=== PATIENT | female | born 1945 | race Caucasian/White ===

== ENCOUNTER → 2018-10-02 | Outpatient (CLI) | payer MEDICARE, OTHER ==
[~2018-10-02] MED LIST: ADVIL100 MG PO; ASPI81EC PO; ATOR40TA PO; Anastrozole1 GM; CARV6.25 PO; CHOL10002; CITRACAL PO; CYAN500 PO; DULO60; FISH OIL 1,0001 EAC1 PO; FISH1000 PO; GABA300 PO; GABAPENTIN300 MG/6 M TOP; GLIP5 PO; GLUCO PO; GLUCOSAMIN-CHO1 EACH PO; LIRA0.6P; LOSARTAN PO; METF500 PO; MULVITMIND PO; PRIM50; SITA100T2; VITAMIN C PO; [UNRECOGNIZED DRUG - OTHER] PO
== END ==
LOC: LAB SHORT 08:30 → LAB EV 08:30
DX: N39.0 Urinary tract infection, site not specified (principal)
CPT/HCPCS: 87077; 87086; 87186

== ENCOUNTER → 2019-10-08 | Outpatient (CLI) | payer MEDICARE, OTHER ==
[~2019-10-08] MED LIST changes: +ASPI81CH PO; -ASPI81EC PO; +CALCITRATE200 MG PO; -FISH1000 PO; +Fish Oil PO; +Gabapentin600 MG PO; +IBUP200 PO; +LETR2.5 PO; +MELATONIN5 M1 PO
== END | disposition home or self-care (01) ==
LOC: LAB 12:15 → LAB SHORT 12:15
DX: E11.65 Type 2 diabetes mellitus with hyperglycemia (principal)
CPT/HCPCS: 36415; 83036

== ENCOUNTER 2019-10-16 10:23 | Day surgery (SDC) | payer MEDICARE, OTHER ==
[~2019-10-16] VITALS: Ht 160 cm; Wt 69.6 kg
--- NOTE | 2019-10-16 12:01 | NUR ---
Ambulatory in Day Surgery History, Chart, Medications and Allergies reviewed before start of procedure.Lungs clear T/O to Auscultation. Patient confirms NPO status and agrees with scheduled surgery.PT'S NECKLACE PLACED IN BAG AND GIVEN TO PT'S .
--- NOTE | 2019-10-16 13:13 | NUR ---
IV INFILTRATED, REMOVED IN OR
--- NOTE | 2019-10-16 17:50 | NUR ---
SHIFT SUMMARY POD 0 S/P R TKA. A/OX4. LANA WRAP C/D/I WITH POLAR, TEDS, AND SCD IN PLACE. IVF RUNNING PER ORDERS. DENIES PAIN, SOB, CP, OR DYSPNEA. ABLE TO WIGGLE FINGERS AND TOES, NOW HAS FULL SENSATION TO BLE. MEDICATED ONCE FOR NAUSEA, TOLERATING CRACKERS AND CL. AWAITING POST-OP VOID, BLADDER SCAN VOL OF 330. SPOUSE AT BEDSIDE. PT CURRENTLY RESTING IN BED WITH CALL LIGHT IN REACH WATCHING TV WITH SPOUSE. WILL CONT TO MONITOR AND GIVE REPORT TO ONCOMING RN.
--- NOTE | 2019-10-17 04:44 | NUR ---
SHIFT SUMMARY POD 1 R TKA. AAOX4, VSS. POLAR LIZET IN PLACE. SENSATION PRESENT, PULSES PALPABLE. LANA WRAP CDI. PAIN REPORTED AT BEGINNING OF SHIFT, MEDICATED WITH OXYCODONE FOR BREATKTHROUGH, MEDICATED WITH SCHEDULED OTHERWISE. PT UP TO RESTROOM X 2 DURING SHIFT WITH FWW AND GB. PT IS UNSTEADY WHEN FIRST STANDING UP. FOLLOWED PRECAUTIONS WELL. REPORTED ONE BM, ONE EMESIS DURING SHIFT, DENIED NAUSEA AFTER VOMITING.
[2019-10-17 05:49] LABS: BASOPHILS ABSOLUTE AUTO 0.02 K/mm3 (0.00-0.23); BASOPHILS PERCENT AUTO 0 % (0-2); EOSINOPHILS PERCENT AUTO 0 % (0-6); Hematocrit 31.1 % (33.0-51.0); Hemoglobin 9.9 g/dL (11.5-16.0); IMMATURE GRAN ABSOLUTE AUTO 0.07 K/mm3 (0.00-0.10); IMMATURE GRAN PERCENT AUTO 1 % (0-1); LYMPHOCYTES PERCENT AUTO 7 % (21-46); MONOCYTES ABSOLUTE AUTO 0.93 K/mm3 (0.16-1.47); MONOCYTES PERCENT AUTO 8 % (4-13); Mean Corpuscular HGB 31.1 pg (26.0-34.0); Mean Corpuscular HGB Conc 31.8 g/dL (31.5-36.5); Mean Corpuscular Volume 98 fL (80-100); Mean Platelet Volume 10.9 fL (9.1-12.4); NEUTROPHILS ABSOLUTE AUTO 10.38 K/mm3 (1.96-9.15); NEUTROPHILS PERCENT AUTO 84 % (41-73); Platelet Count 232 K/mm3 (150-400); RDW Coefficient Variation 12.7 % (11.7-14.2); RDW Standard Deviation 45.6 fL (35.1-46.3); Red Blood Cell Count 3.18 M/mm3 (3.80-5.20)
[2019-10-17 06:15] LABS: Magnesium, Blood 1.4 mg/dL (1.6-2.4)
[2019-10-17 06:17] LABS: Anion Gap 8 mmol/L (6-16); Blood Urea Nitrogen 23 mg/dL (8-24); Bun/Creatinine Ratio 27.4 (12.0-20.0); CO2, Blood 25 mmol/L (21-32); Calcium, Blood 8.7 mg/dL (8.5-10.1); Chloride, Blood 107 mmol/L (98-108); Creatinine, Blood 0.84 mg/dL (0.40-1.00); Glomerular Filtration Rate >60 (60-); Glucose, Blood 108 mg/dL (70-99); Potassium, Blood 4.2 mmol/L (3.5-5.5); Sodium, Blood 140 mmol/L (136-145)
--- NOTE | 2019-10-17 10:17 | NUR ---
10/17/19 1017 Asia Romero VERIFICATIONS: EDIT CHART.
[2019-10-17] MEDS ORDERED: ASPI325EC PO (10:34)
[2019-10-17] MEDS ORDERED: ENOX40I SC (10:35)
[2019-10-17] MEDS ORDERED: Bactrim Ds Tab1 EACH PO (10:36)
--- NOTE | 2019-10-17 11:39 | NUR ---
DISCHARGE PT PROVIDED WITH WRITTEN AND VERBAL DISCHARGE INSTRUCTIONS. PT AND FAMILY REPORTED UNDERSTAINDING OF DISCHARGE INSTRUCTIONS. PT REPORTED SHE HAS PRESCRIPTIONS AT HOME. DRESSINGS PROVIDED. PHENERGAN REQUESTED FROM DR. RAYGOZA'S OFFICE SINCE PT HAD NAUSEA AND VOMITING AT TIME OF DISCHARGE. SHE GIVEN PHENERGAN BEFORE LEAVING. PT WAS EDUCATED TO GIVE LOVENOX. PT ESCORTED OUT IN W/C. WILL CONTINUE TO MONITOR.
--- NOTE | 2019-10-17 12:21 | NUR ---
BABY ASPIRIN ORDER CLARIFIED WITH DR. RAYGOZA'S OFFICE. PT CALLED AND EDUCATED TO TAKE BABY ASPIRIN AND LOVENOX TOGETHER. STOP BABY ASA WHEN TAKING FULL DOSE ASPIRIN AND TO RESTART BABY ASPIRIN AFTER 4 WEEKS OF FULL DOSE ASA THERAPY.
== END 2019-10-17 11:40 | disposition home or self-care (01) ==
LOC: ORSCMMR 10:23 → ORD 12:00 → ORSCMMR 12:00 → ORD 14:00 → SURS 14:56 → ORSCMMR 10-17 11:40
PROVIDERS: Orthopaedic Surgery
PROC: 8E0YXBZ Computer Assisted Procedure of Lower Extremity (ICD-10-PCS; principal; 2019-10-16 12:00)
PROC: 0SRC0J9 Replacement of Right Knee Joint with Synthetic Substitute, Cemented, Open Approach (ICD-10-PCS; principal; 2019-10-16 12:00)
DX: M17.11 Unilateral primary osteoarthritis, right knee (principal); E11.9 Type 2 diabetes mellitus without complications; E78.5 Hyperlipidemia, unspecified; I10 Essential (primary) hypertension; E55.9 Vitamin D deficiency, unspecified; Z87.891 Personal history of nicotine dependence; Z79.82 Long term (current) use of aspirin; Z79.84 Long term (current) use of oral hypoglycemic drugs; Z79.899 Other long term (current) drug therapy
CPT/HCPCS: 73560-RT; 80048; 82947; 83735; 85025; 88300; 90686; 97110; 97116; 97162; A9270-GY; C1713; C1776; J0171; J0690; J0735; J1650; J1815; J1885; J2250; J2795; J3475; J7120

== ENCOUNTER → 2022-09-13 | Outpatient (CLI) | payer MEDICARE ==
[~2022-09-13] MED LIST changes: +ASPI325EC PO; +Bactrim Ds Tab1 EACH PO; +ENOX40I SC
[2022-09-13 15:48] LABS: BASOPHILS ABSOLUTE AUTO 0.03 K/mm3 (0.00-0.23); BASOPHILS PERCENT AUTO 0 % (0-2); EOSINOPHILS ABSOLUTE AUTO 0.06 K/mm3 (0.00-0.68); EOSINOPHILS PERCENT AUTO 1 % (0-6); Hematocrit 33.7 % (33.0-51.0); IMMATURE GRAN ABSOLUTE AUTO 0.03 K/mm3 (0.00-0.10); IMMATURE GRAN PERCENT AUTO 0 % (0-1); LYMPHOCYTES ABSOLUTE AUTO 1.44 K/mm3 (0.84-5.20); LYMPHOCYTES PERCENT AUTO 13 % (21-46); MONOCYTES ABSOLUTE AUTO 1.04 K/mm3 (0.16-1.47); MONOCYTES PERCENT AUTO 9 % (4-13); Mean Corpuscular HGB 31.8 pg (26.0-34.0); Mean Corpuscular HGB Conc 32.6 g/dL (31.5-36.5); Mean Corpuscular Volume 97 fL (80-100); Mean Platelet Volume 10.2 fL (9.1-12.4); NEUTROPHILS ABSOLUTE AUTO 8.86 K/mm3 (1.96-9.15); NEUTROPHILS PERCENT AUTO 77 % (41-73); Platelet Count 341 K/mm3 (150-400); RDW Coefficient Variation 13.3 % (11.7-14.2); Red Blood Cell Count 3.46 M/mm3 (3.80-5.20); White Blood Cell Count 11.46 K/mm3 (4.00-11.30)
[2022-09-13 15:58] LABS: Albumin, Blood 3.6 g/dL (3.4-5.0); Albumin/Globulin Ratio 0.9 (0.8-1.8); Bilirubin, Total 0.2 mg/dL (0.1-1.0); Bun/Creatinine Ratio 15.6 (12.0-20.0); Calcium, Blood 9.5 mg/dL (8.5-10.1); Creatinine, Blood 1.54 mg/dL (0.40-1.00); Globulin, Blood 3.8 g/dL (2.2-4.0); Potassium, Blood 3.9 mmol/L (3.5-5.5); Total Protein, Blood 7.4 g/dL (6.4-8.2)
== END | disposition home or self-care (01) ==
LOC: LAB SHORT 15:44
PROVIDERS: Physician Assistant
DX: R10.9 Unspecified abdominal pain (principal)
CPT/HCPCS: 80053; 82150; 83690; 85025

== ENCOUNTER → 2022-09-13 | Outpatient (CLI) | payer MEDICARE | END | disposition home or self-care (01) | LOC: LAB SHORT 16:54 | DX: N39.0 Urinary tract infection, site not specified (principal) | CPT/HCPCS: 87077; 87086; 87186 ==

== ENCOUNTER → 2023-07-10 | Outpatient (CLI) | payer MEDICARE | END | disposition home or self-care (01) | LOC: LAB 15:55 → LAB SHORT 15:55 | DX: R10.9 Unspecified abdominal pain (principal) | CPT/HCPCS: 87086 ==

== ENCOUNTER 2023-07-21 11:01 | Day surgery (SDC) | payer MEDICARE ==
[~2023-07-21] VITALS: Ht 160 cm; Wt 55.7 kg
[2023-07-21] MEDS ORDERED: Vitamin B-12100 MCG (11:25)
[2023-07-21] MEDS ORDERED: Primidone50 MG ×2 (11:25→11:39)
[2023-07-21] MEDS ORDERED: LOSA25 ×2 (11:25→11:39)
[2023-07-21] MEDS ORDERED: BUPR150ER (11:28)
[2023-07-21] MEDS ORDERED: VITAMIN B125000 MC1 (11:38)
[2023-07-21] MEDS ORDERED: LETR2.5 (11:39)
[2023-07-21] MEDS ORDERED: ERGO50000 (11:39)
[2023-07-21 13:25] VITALS: BP 163/77
--- NOTE | 2023-07-21 13:27 | NUR ---
07/21/23 1327 Yokasta Booker IV DC'D, CATH INTACT. PT TOLERATED WELL. COBAN/GAUZE IN PLACE
== END 2023-07-21 13:27 | disposition home or self-care (01) ==
LOC: ORSCSDS 11:01
PROVIDERS: Internal Medicine Gastroenterology
PROC: 0DB68ZX Excision of Stomach, Via Natural or Artificial Opening Endoscopic, Diagnostic (ICD-10-PCS; principal; 2023-07-21 12:30)
PROC: 0DB58ZX Excision of Esophagus, Via Natural or Artificial Opening Endoscopic, Diagnostic (ICD-10-PCS; principal; 2023-07-21 12:30)
PROC: 0DB98ZX Excision of Duodenum, Via Natural or Artificial Opening Endoscopic, Diagnostic (ICD-10-PCS; principal; 2023-07-21 12:30)
PROC: 0DBK8ZX Excision of Ascending Colon, Via Natural or Artificial Opening Endoscopic, Diagnostic (ICD-10-PCS; 2023-07-21 12:30)
DX: R10.30 Lower abdominal pain, unspecified (principal); R14.0 Abdominal distension (gaseous); R19.4 Change in bowel habit; K21.9 Gastro-esophageal reflux disease without esophagitis; D12.2 Benign neoplasm of ascending colon; I12.9 Hypertensive chronic kidney disease with stage 1 through stage 4 chronic kidney disease, or unspecified chronic kidney disease; E11.22 Type 2 diabetes mellitus with diabetic chronic kidney disease; N18.30 Chronic kidney disease, stage 3 unspecified; E11.40 Type 2 diabetes mellitus with diabetic neuropathy, unspecified; Z86.010 Personal history of colon polyps; E78.2 Mixed hyperlipidemia; Z79.899 Other long term (current) drug therapy
CPT/HCPCS: 82947; 88305; 88312; 88342; J2704; J7120

== ENCOUNTER 2023-09-11 17:35 | Emergency (ER) | payer MEDICARE ==
[~2023-09-11] VITALS: Ht 160 cm; Wt 57.6 kg
[~2023-09-11 17:35] MED LIST changes: +BUPR150ER; +ERGO50000; +LETR2.5; +LOSA25; +Primidone50 MG; +VITAMIN B125000 MC1; +Vitamin B-12100 MCG
[2023-09-11 17:38] VITALS: BP 182/76
[2023-09-11] MEDS ORDERED: GLUC500 PO (17:49)
[2023-09-11] MEDS ORDERED: FISH OIL 1,0001 EA10 PO (17:50)
== END 2023-09-11 19:20 | disposition home or self-care (01) ==
LOC: ER 17:35
DX: S00.03XA Contusion of scalp, initial encounter (principal); Z88.2 Allergy status to sulfonamides; Z88.1 Allergy status to other antibiotic agents; Z91.048 Other nonmedicinal substance allergy status; Z88.8 Allergy status to other drugs, medicaments and biological substances; Z79.899 Other long term (current) drug therapy; Z79.84 Long term (current) use of oral hypoglycemic drugs; E11.9 Type 2 diabetes mellitus without complications; I10 Essential (primary) hypertension; E78.00 Pure hypercholesterolemia, unspecified; Z87.891 Personal history of nicotine dependence
CPT/HCPCS: 70450; 72125; 93005; 93010; 99284-25

== ENCOUNTER 2024-05-24 23:56 | Inpatient (IN) | payer MEDICARE ==
[~2024-05-24] VITALS: Ht 160 cm; Wt 53.2 kg
[~2024-05-24 23:56] MED LIST changes: +Amoxicillin500 MG PO; +CYMBALTA20 M2 PO; +FISH OIL 1,0001 EA10 PO; +GLUC500 PO; +LOSARTAN POTASS25 M2 PO; +Primidone50 MG PO
[2024-05-25 00:16] LABS: BASOPHILS ABSOLUTE AUTO 0.04 K/mm3 (0.00-0.23); BASOPHILS PERCENT AUTO 0 % (0-2); EOSINOPHILS ABSOLUTE AUTO 0.01 K/mm3 (0.00-0.68); EOSINOPHILS PERCENT AUTO 0 % (0-6); Hematocrit 31.9 % (33.0-51.0); Hemoglobin 10.2 g/dL (11.5-16.0); IMMATURE GRAN ABSOLUTE AUTO 0.09 K/mm3 (0.00-0.10); IMMATURE GRAN PERCENT AUTO 1 % (0-1); LYMPHOCYTES ABSOLUTE AUTO 0.63 K/mm3 (0.84-5.20); LYMPHOCYTES PERCENT AUTO 5 % (21-46); MONOCYTES ABSOLUTE AUTO 0.95 K/mm3 (0.16-1.47); MONOCYTES PERCENT AUTO 8 % (4-13); Mean Corpuscular Volume 94 fL (80-100); Mean Platelet Volume 9.5 fL (9.1-12.4); NEUTROPHILS ABSOLUTE AUTO 9.86 K/mm3 (1.96-9.15); NEUTROPHILS PERCENT AUTO 85 % (41-73); Platelet Count 306 K/mm3 (150-400); RDW Coefficient Variation 16.3 % (11.7-14.2); RDW Standard Deviation 56.2 fL (35.1-46.3); White Blood Cell Count 11.58 K/mm3 (4.00-11.30)
[2024-05-25 00:45] LABS: Albumin, Blood 2.3 g/dL (3.4-5.0); Albumin/Globulin Ratio 0.5 (0.8-1.8); Bilirubin, Total 0.2 mg/dL (0.1-1.0); Bun/Creatinine Ratio 19.6 (12.0-20.0); Calcium, Blood 8.5 mg/dL (8.5-10.1); Creatinine, Blood 0.77 mg/dL (0.40-1.00); Globulin, Blood 4.2 g/dL (2.2-4.0); Potassium, Blood 4.4 mmol/L (3.5-5.5); Total Protein, Blood 6.5 g/dL (6.4-8.2)
[2024-05-25] MEDS ORDERED: BUPR150ER PO (01:12)
[2024-05-25] MEDS ORDERED: NS 1,000 ML IV SCH ×3 (01:15→16:35)
[2024-05-25 02:18] LABS: Source, Urine Straight Cath
[2024-05-25 02:18] LABS: Influenza A, PCR NEGATIVE (NEGATIVE); Influenza B, PCR NEGATIVE (NEGATIVE); Resp Syncytial Virus, PCR NEGATIVE (NEGATIVE); SARS-Cov-2 (COVID-19) PCR, MMC NEGATIVE (NEGATIVE)
[2024-05-25 02:23] LABS: Bilirubin, Urine Neg (Neg); Blood, Urine Neg (Neg); Glucose Qualitative, Urine Neg (Neg); Ketones, Urine Neg (Neg); Leukocyte Esterase, Urine 1+ (Neg); Nitrite, Urine Pos (Neg); Protein, Urine 1+ (Neg); Urobilinogen, Urine NORM (Normal)
[2024-05-25 02:28] LABS: Appearance, Urine Hazy (Clear); Color, Urine Yellow (P-Yellow)
[2024-05-25 02:30] LABS: Bacteria Many /hpf; Red Blood Cells, Urine 0-2 /hpf (0-2); Squamous Epithelial Cells Few /hpf (Few); White Blood Cells, Urine 0-2 /hpf (0-5)
[2024-05-25 02:37] LABS: Base Excess Venous -5.4 mmol/L; Bicarbonate Venous 20.4 mmol/L (24.0-30.0); PCO2 Venous 35.5 mmHg (38-42); pH Blood Venous 7.36 (7.34-7.37)
[2024-05-25] MEDS ORDERED: CefTRIAXone Sodium 1,000 MG in NS 100 ML IV ONE (02:40)
[2024-05-25 02:57] LABS: Source, Urine Nephrostomy
[2024-05-25 03:07] LABS: Bilirubin, Urine Neg (Neg); Blood, Urine 2+ (Neg); Glucose Qualitative, Urine Neg (Neg); Ketones, Urine Neg (Neg); Leukocyte Esterase, Urine 3+ (Neg); Nitrite, Urine Pos (Neg); Protein, Urine 2+ (Neg); Specific Gravity, Urine 1.015 (1.003-1.022); Urobilinogen, Urine NORM (Normal)
[2024-05-25 03:21] LABS: Appearance, Urine Hazy (Clear); Color, Urine Yellow (P-Yellow)
[2024-05-25 03:31] LABS: Amorphous Light (0-Heavy); Bacteria Many /hpf; Squamous Epithelial Cells Few /hpf (Few); White Blood Cells, Urine 25-50 /hpf (0-5)
[2024-05-25] MEDS ORDERED: Ampicillin Sod 1,000 MG in NS 50 ML IV ONE (04:00)
[2024-05-25] MEDS ORDERED: NS 1,000 ML IV ONE ×2 (05:05→05:55)
[2024-05-25 05:48] LABS: BASOPHILS ABSOLUTE AUTO 0.04 K/mm3 (0.00-0.23); BASOPHILS PERCENT AUTO 0 % (0-2); EOSINOPHILS PERCENT AUTO 0 % (0-6); Hematocrit 25.5 % (33.0-51.0); Hemoglobin 8.3 g/dL (11.5-16.0); IMMATURE GRAN ABSOLUTE AUTO 0.09 K/mm3 (0.00-0.10); IMMATURE GRAN PERCENT AUTO 1 % (0-1); LYMPHOCYTES ABSOLUTE AUTO 0.66 K/mm3 (0.84-5.20); LYMPHOCYTES PERCENT AUTO 5 % (21-46); MONOCYTES ABSOLUTE AUTO 1.13 K/mm3 (0.16-1.47); MONOCYTES PERCENT AUTO 9 % (4-13); Mean Corpuscular HGB 30.6 pg (26.0-34.0); Mean Corpuscular HGB Conc 32.5 g/dL (31.5-36.5); Mean Corpuscular Volume 94 fL (80-100); Mean Platelet Volume 9.3 fL (9.1-12.4); NEUTROPHILS ABSOLUTE AUTO 10.96 K/mm3 (1.96-9.15); NEUTROPHILS PERCENT AUTO 85 % (41-73); Platelet Count 252 K/mm3 (150-400); RDW Coefficient Variation 16.4 % (11.7-14.2); RDW Standard Deviation 56.3 fL (35.1-46.3); Red Blood Cell Count 2.71 M/mm3 (3.80-5.20); White Blood Cell Count 12.88 K/mm3 (4.00-11.30)
[2024-05-25 06:12] LABS: Albumin, Blood 1.8 g/dL (3.4-5.0); Albumin/Globulin Ratio 0.5 (0.8-1.8); Bilirubin, Total 0.2 mg/dL (0.1-1.0); Creatinine, Blood 0.79 mg/dL (0.40-1.00); Globulin, Blood 3.5 g/dL (2.2-4.0); Potassium, Blood 4.1 mmol/L (3.5-5.5); Total Protein, Blood 5.3 g/dL (6.4-8.2)
[2024-05-25] MEDS ORDERED: Lactobacil 2-S.Thermo-Bifido 1 1 Cap PO SCH (09:00)
[2024-05-25] MEDS ORDERED: Enoxaparin 40 MG/0.4 ML SYR SC SCH (09:00)
[2024-05-25] MEDS ORDERED: Acetaminophen 325 MG TABLET PO PRN (14:35)
[2024-05-25 16:16] VITALS: BP 102/42
--- NOTE | 2024-05-25 16:30 | NUR ---
NOTIFIED DR WEBER OF YEAST GROWING IN 2 OF 2 BOTTLES OF BLOOD CX. MAP OF 60 WITH B/P 102/42, RECEVIED ORDERS TO START NS @ 100 ML/HR.
[2024-05-25] MEDS ORDERED: Glucosamine Sulfate 500 MG Cap PO SCH (17:00)
[2024-05-25] MEDS ORDERED: MetFORMIN HCl 500 mg PO SCH (17:00)
[2024-05-25] MEDS ORDERED: Primidone 50 MG Tab PO SCH (18:00)
[2024-05-25 19:46] VITALS: BP 119/41
[2024-05-25] MEDS ORDERED: Atorvastatin 40 MG Tab PO SCH (21:00)
--- NOTE | 2024-05-26 02:22 | NUR ---
SHIFT SUMMARY 79 YR F DMITTED ON 05/25/24. DNR. NO ACUTE CHANGES THIS SHIFT. PT C/O BACK PAIN AND REQUESTED TYLENOL. NO OTHER C/O PAIN OR DISCOMFORT. PT IS PLEASANT AND COOPERATIVE WITH CARE. A&O X 4 AND CALLS APPROPRIATELY FOR ASSISTANCE. SHE APPEARS TO HAVE RESTED COMFORTABLY THROUGHOUT THE NIGHT. PER LAB, PT'S URINE SAMPLE HAD GRAM POSITIVE COCCI IN CHAINS, RATHER THAN YEAST PREVIOUSLY REPORTED. WILL PASS INFO ON TO DAY RN.
[2024-05-26 02:57] VITALS: BP 114/43
[2024-05-26 07:36] VITALS: BP 129/54
[2024-05-26] MEDS ORDERED: CefTRIAXone Sodium 1,000 MG in NS 100 ML IV SCH (09:00)
[2024-05-26] MEDS ORDERED: Primidone 50 MG Tab PO SCH (09:00)
[2024-05-26] MEDS ORDERED: DULoxetine HCL 20 MG Cap DR PO SCH (09:00)
[2024-05-26] MEDS ORDERED: MetFORMIN HCl 500 mg PO SCH (09:00)
[2024-05-26] MEDS ORDERED: buPROPion HCL 150 MG TAB.SR.12H PO SCH (09:00)
[2024-05-26 10:32] LABS: BASOPHILS ABSOLUTE AUTO 0.05 K/mm3 (0.00-0.23); BASOPHILS PERCENT AUTO 1 % (0-2); EOSINOPHILS ABSOLUTE AUTO 0.06 K/mm3 (0.00-0.68); EOSINOPHILS PERCENT AUTO 1 % (0-6); Hematocrit 27.2 % (33.0-51.0); Hemoglobin 8.6 g/dL (11.5-16.0); IMMATURE GRAN ABSOLUTE AUTO 0.09 K/mm3 (0.00-0.10); IMMATURE GRAN PERCENT AUTO 1 % (0-1); LYMPHOCYTES ABSOLUTE AUTO 0.69 K/mm3 (0.84-5.20); LYMPHOCYTES PERCENT AUTO 7 % (21-46); MONOCYTES PERCENT AUTO 9 % (4-13); Mean Corpuscular HGB 29.9 pg (26.0-34.0); Mean Corpuscular HGB Conc 31.6 g/dL (31.5-36.5); Mean Corpuscular Volume 94 fL (80-100); Mean Platelet Volume 9.5 fL (9.1-12.4); NEUTROPHILS ABSOLUTE AUTO 8.37 K/mm3 (1.96-9.15); NEUTROPHILS PERCENT AUTO 82 % (41-73); Platelet Count 281 K/mm3 (150-400); RDW Coefficient Variation 16.3 % (11.7-14.2); RDW Standard Deviation 56.3 fL (35.1-46.3); Red Blood Cell Count 2.88 M/mm3 (3.80-5.20); White Blood Cell Count 10.16 K/mm3 (4.00-11.30)
[2024-05-26 10:55] LABS: Albumin, Blood 1.8 g/dL (3.4-5.0); Albumin/Globulin Ratio 0.5 (0.8-1.8); Bilirubin, Total 0.1 mg/dL (0.1-1.0); Calcium, Blood 7.7 mg/dL (8.5-10.1); Creatinine, Blood 0.63 mg/dL (0.40-1.00); Globulin, Blood 3.7 g/dL (2.2-4.0); Potassium, Blood 3.7 mmol/L (3.5-5.5); Total Protein, Blood 5.5 g/dL (6.4-8.2)
[2024-05-26 15:34] VITALS: BP 137/55
--- NOTE | 2024-05-26 18:30 | NUR ---
PATIENT A/OX4, UP WITH FWW AND SBA. REMAINS, WEAK, BUT IMPROVING. L NEPHROSTOMY OUT OF 400ML THIS SHIFT. VSS, ON RA. POWERGLIDE PLACED TO ANKUSH, NS @ 100 ML/HR INFUSING. BACK PAIN IMPROVED SINCE UP IN CHAIR. CONTINUES ON ROCEPHIN TO TREAT UTI. TOLERATING REGULAR DIET. NO NEW CONCERNS THIS SHIFT. PATIENT CALLS APPROPRIATELY AND IS ABLE TO MAKE NEEDS KNOWN.
[2024-05-26 19:23] VITALS: BP 136/47
[2024-05-27] VITALS (7 sets, daily range): BP systolic 135–150; BP diastolic 45–53
--- NOTE | 2024-05-27 05:35 | NUR ---
SHIFT SUMMARY: JOSHUA IS A&OX3. VSS, NO ACUTE EVENTS OVERNIGHT. SHE IS A ONE-PERSON ASSIST WITH THE FWW. ATTENDS IN PLACE, OCCASIONAL STRESS INCONTINENCE. SHE DID HAVE A BOWEL MOVEMENT THIS SHIFT. POWERGLIDE TO ANKUSH PATENT. NEPHROSTOMY TO LEFT FLANK PATENT, DRAINING CLEAR, YELLOW URINE. PT REPORTS URINATING WITHOUT DIFFICULTY. SHE STATED THAT HER BACK PAIN IS IMPROVED AFTER SITTING UP IN THE CHAIR DURING DAY SHIFT YESTERDAY. SHE REPORTS ADEQUATE PAIN MANAGEMENT WITH MEDICATION PER NOV. SHE IS LYING IN BED WITH THE CALL LIGHT IN REACH, BED IN LOWEST POSITION. WILL GIVE REPORT TO DAY SHIFT RN.
[2024-05-27 10:00] LABS: BASOPHILS ABSOLUTE AUTO 0.02 K/mm3 (0.00-0.23); BASOPHILS PERCENT AUTO 0 % (0-2); EOSINOPHILS ABSOLUTE AUTO 0.03 K/mm3 (0.00-0.68); EOSINOPHILS PERCENT AUTO 0 % (0-6); Hematocrit 24.4 % (33.0-51.0); Hemoglobin 7.9 g/dL (11.5-16.0); IMMATURE GRAN ABSOLUTE AUTO 0.05 K/mm3 (0.00-0.10); IMMATURE GRAN PERCENT AUTO 1 % (0-1); LYMPHOCYTES PERCENT AUTO 9 % (21-46); MONOCYTES ABSOLUTE AUTO 0.87 K/mm3 (0.16-1.47); MONOCYTES PERCENT AUTO 10 % (4-13); Mean Corpuscular HGB 30.3 pg (26.0-34.0); Mean Corpuscular HGB Conc 32.4 g/dL (31.5-36.5); Mean Corpuscular Volume 94 fL (80-100); Mean Platelet Volume 9.3 fL (9.1-12.4); NEUTROPHILS ABSOLUTE AUTO 6.81 K/mm3 (1.96-9.15); NEUTROPHILS PERCENT AUTO 80 % (41-73); Platelet Count 269 K/mm3 (150-400); RDW Coefficient Variation 15.9 % (11.7-14.2); RDW Standard Deviation 54.5 fL (35.1-46.3); Red Blood Cell Count 2.61 M/mm3 (3.80-5.20); White Blood Cell Count 8.58 K/mm3 (4.00-11.30)
[2024-05-27 10:25] LABS: Albumin, Blood 1.7 g/dL (3.4-5.0); Albumin/Globulin Ratio 0.5 (0.8-1.8); Bilirubin, Total 0.1 mg/dL (0.1-1.0); Bun/Creatinine Ratio 13.6 (12.0-20.0); Calcium, Blood 7.6 mg/dL (8.5-10.1); Creatinine, Blood 0.66 mg/dL (0.40-1.00); Globulin, Blood 3.4 g/dL (2.2-4.0); Potassium, Blood 3.7 mmol/L (3.5-5.5); Total Protein, Blood 5.1 g/dL (6.4-8.2)
[2024-05-27] MEDS ORDERED: NS 1,000 ML IV SCH (17:00)
--- NOTE | 2024-05-27 17:06 | NUR ---
SHIFT SUMMARY PT UP TO CHAIR TWICE THIS SHIFT FOR MEALS. POOR APPETITE. PT NOT TAKING MUCH PO FLUID IN. DR. CORREA NOTIFIED. ORDER TO RESTART 75ML/HR OF NS OBTAINED. ECHO COMPLETED TODAY. DR. 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 DR. CORREA SPOKE WITH PT & HER OVER THE PHONE WITH RN IN ROOM ABOUT THESE RESULTS. PT DENIES PAIN TODAY. ANXIOUS ABOUT NEWS OF NEED FOR TRANSFER. NO OTHER ACUTE CHANGES IN ASSESSMENT AT THIS TIME. VS REVIEWED. CALL LIGHT IN REACH.
--- NOTE | 2024-05-27 18:57 | NUR ---
REPORT CALLED TO NATALY AT [facility] IN [place]
[2024-05-27] MEDS ORDERED: DULoxetine HCL 20 MG Cap DR PO SCH (21:00)
--- NOTE | 2024-05-27 21:00 | NUR ---
PT PICKED UP BY EMT FOR TRANSPORT TO [facility]. DAY SHIFT RN CALLED REPORT. POWERGLIDE TO ANKUSH LEFT IN PLACE, SALINE LOCKED. CALLED PT'S AND UPDATED. PERSONAL BELONGINGS SENT WITH PT. TRANSFER PACKET GIVEN TO opticianry teacher.
== END 2024-05-27 20:43 | disposition short-term general hospital (02) | DRG 871 ==
LOC: ER 23:56 → ERHOLD 23:57 → MEDS 05-25 16:10
PROVIDERS: Emergency Medicine; Family Medicine; Internal Medicine; ADMIT Internal Medicine
DX: A41.81 Sepsis due to Enterococcus (principal); I33.0 Acute and subacute infective endocarditis; N13.6 Pyonephrosis; C79.89 Secondary malignant neoplasm of other specified sites; R65.20 Severe sepsis without septic shock; Z66 Do not resuscitate; I10 Essential (primary) hypertension; E78.5 Hyperlipidemia, unspecified; F32.A Depression, unspecified; E11.42 Type 2 diabetes mellitus with diabetic polyneuropathy; E78.2 Mixed hyperlipidemia; E55.9 Vitamin D deficiency, unspecified; K21.9 Gastro-esophageal reflux disease without esophagitis; Z88.2 Allergy status to sulfonamides; Z88.1 Allergy status to other antibiotic agents; Z88.8 Allergy status to other drugs, medicaments and biological substances; Z91.048 Other nonmedicinal substance allergy status; Z79.899 Other long term (current) drug therapy; Z79.84 Long term (current) use of oral hypoglycemic drugs; Z85.3 Personal history of malignant neoplasm of breast; Z90.710 Acquired absence of both cervix and uterus; G25.2 Other specified forms of tremor; G47.00 Insomnia, unspecified; Z90.49 Acquired absence of other specified parts of digestive tract; Z98.890 Other specified postprocedural states
CPT/HCPCS: 0241U; 36415; 51701; 74177; 80053; 81001; 82803; 82947; 83605; 84145; 85025; 87040; 87077; 87086; 87186; 93005; 93010; 93306; 96361; 96365; 96367; 96372; 99285; A9270; C1751; G0378; J0290; J0696; J1650; J7030; Q9967

== ENCOUNTER 2024-06-10 14:27 | Emergency (ER) | payer MEDICARE ==
[~2024-06-10] VITALS: Ht 160 cm; Wt 59.0 kg
[~2024-06-10 14:27] MED LIST changes: +BUPR150ER PO
[2024-06-10 15:22] LABS: BASOPHILS ABSOLUTE AUTO 0.07 K/mm3 (0.00-0.23); BASOPHILS PERCENT AUTO 1 % (0-2); EOSINOPHILS ABSOLUTE AUTO 0.19 K/mm3 (0.00-0.68); EOSINOPHILS PERCENT AUTO 2 % (0-6); Hematocrit 26.2 % (33.0-51.0); Hemoglobin 8.2 g/dL (11.5-16.0); IMMATURE GRAN ABSOLUTE AUTO 0.07 K/mm3 (0.00-0.10); IMMATURE GRAN PERCENT AUTO 1 % (0-1); LYMPHOCYTES ABSOLUTE AUTO 0.61 K/mm3 (0.84-5.20); LYMPHOCYTES PERCENT AUTO 6 % (21-46); MONOCYTES ABSOLUTE AUTO 1.08 K/mm3 (0.16-1.47); MONOCYTES PERCENT AUTO 10 % (4-13); Mean Corpuscular HGB 31.3 pg (26.0-34.0); Mean Corpuscular HGB Conc 31.3 g/dL (31.5-36.5); Mean Corpuscular Volume 100 fL (80-100); Mean Platelet Volume 9.6 fL (9.1-12.4); NEUTROPHILS ABSOLUTE AUTO 9.05 K/mm3 (1.96-9.15); NEUTROPHILS PERCENT AUTO 82 % (41-73); Platelet Count 424 K/mm3 (150-400); RDW Coefficient Variation 18.9 % (11.7-14.2); Red Blood Cell Count 2.62 M/mm3 (3.80-5.20); White Blood Cell Count 11.07 K/mm3 (4.00-11.30)
[2024-06-10] MEDS ORDERED: ELIQUIS5 M2 PO (15:22)
[2024-06-10] MEDS ORDERED: Acetaminophen325 M1 PO (15:22)
[2024-06-10] MEDS ORDERED: Aspir 8181 MG PO (15:22)
[2024-06-10] MEDS ORDERED: Ampicillin Sodiu2 G1 IV (15:22)
[2024-06-10] MEDS ORDERED: CEFTRIAXONE2 G7 IV (15:23)
[2024-06-10] MEDS ORDERED: BISA10S PR (15:24)
[2024-06-10] MEDS ORDERED: DRON2.5 PO (15:24)
[2024-06-10] MEDS ORDERED: FURO40 PO (15:25)
[2024-06-10] MEDS ORDERED: LOPE2C PO (15:26)
[2024-06-10] MEDS ORDERED: METO25 PO (15:28)
[2024-06-10] MEDS ORDERED: PRESERVISION A1 EAC4 PO (15:29)
[2024-06-10] MEDS ORDERED: ZOLEDRONIC ACID4 M1 IV (15:30)
[2024-06-10] MEDS ORDERED: TRAM50 PO (15:30)
[2024-06-10 17:15] VITALS: BP 125/65
== END 2024-06-10 17:44 | disposition home or self-care (01) ==
LOC: ER 14:27
PROVIDERS: Student in an Organized Health Care Education/Training Program
DX: D64.9 Anemia, unspecified (principal); Z88.8 Allergy status to other drugs, medicaments and biological substances; Z88.1 Allergy status to other antibiotic agents; Z88.2 Allergy status to sulfonamides; Z91.040 Latex allergy status; Z91.048 Other nonmedicinal substance allergy status; Z79.899 Other long term (current) drug therapy; Z79.82 Long term (current) use of aspirin; E11.9 Type 2 diabetes mellitus without complications; I10 Essential (primary) hypertension; E78.00 Pure hypercholesterolemia, unspecified; Z85.3 Personal history of malignant neoplasm of breast; Z87.891 Personal history of nicotine dependence
CPT/HCPCS: 71046; 85025; 86850; 86870; 86900; 86901; 86905; 99284-25

== ENCOUNTER 2024-06-24 15:50 | Emergency (ER) | payer MEDICARE ==
[~2024-06-24] VITALS: Ht 160 cm; Wt 61.2 kg
[~2024-06-24 15:50] MED LIST changes: +Acetaminophen325 M1 PO; +Ampicillin Sodiu2 G1 IV; +Aspir 8181 MG PO; +BISA10S PR; +CEFTRIAXONE2 G7 IV; +DRON2.5 PO; +ELIQUIS5 M2 PO; +FURO40 PO; +LOPE2C PO; +METO25 PO; +PRESERVISION A1 EAC4 PO; +TRAM50 PO; +ZOLEDRONIC ACID4 M1 IV
[2024-06-24 16:42] LABS: BASOPHILS ABSOLUTE AUTO 0.05 K/mm3 (0.00-0.23); BASOPHILS PERCENT AUTO 1 % (0-2); EOSINOPHILS ABSOLUTE AUTO 0.62 K/mm3 (0.00-0.68); EOSINOPHILS PERCENT AUTO 7 % (0-6); Hematocrit 29.9 % (33.0-51.0); Hemoglobin 9.4 g/dL (11.5-16.0); IMMATURE GRAN ABSOLUTE AUTO 0.03 K/mm3 (0.00-0.10); IMMATURE GRAN PERCENT AUTO 0 % (0-1); LYMPHOCYTES ABSOLUTE AUTO 0.71 K/mm3 (0.84-5.20); LYMPHOCYTES PERCENT AUTO 8 % (21-46); MONOCYTES ABSOLUTE AUTO 0.97 K/mm3 (0.16-1.47); MONOCYTES PERCENT AUTO 11 % (4-13); Mean Corpuscular HGB 31.4 pg (26.0-34.0); Mean Corpuscular HGB Conc 31.4 g/dL (31.5-36.5); Mean Corpuscular Volume 100 fL (80-100); Mean Platelet Volume 9.6 fL (9.1-12.4); NEUTROPHILS ABSOLUTE AUTO 6.38 K/mm3 (1.96-9.15); NEUTROPHILS PERCENT AUTO 73 % (41-73); Platelet Count 322 K/mm3 (150-400); RDW Coefficient Variation 18.7 % (11.7-14.2); RDW Standard Deviation 68.8 fL (35.1-46.3); Red Blood Cell Count 2.99 M/mm3 (3.80-5.20); White Blood Cell Count 8.76 K/mm3 (4.00-11.30)
[2024-06-24 17:10] LABS: Albumin, Blood 1.7 g/dL (3.4-5.0); Albumin/Globulin Ratio 0.4 (0.8-1.8); Bilirubin, Total 0.1 mg/dL (0.1-1.0); Bun/Creatinine Ratio 10.7 (12.0-20.0); Calcium, Blood 8.2 mg/dL (8.5-10.1); Creatinine, Blood 0.75 mg/dL (0.40-1.00); Potassium, Blood 3.4 mmol/L (3.5-5.5); Total Protein, Blood 5.7 g/dL (6.4-8.2)
[2024-06-24] MEDS ORDERED: NS 1,000 ML IV SCH (17:45)
[2024-06-24] MEDS ORDERED: CLIN150 PO (19:27)
[2024-06-24] MEDS ORDERED: Clindamycin HCl 150 MG Cap PO ONE (19:30)
[2024-06-24 20:00] VITALS: BP 130/90
== END 2024-06-24 20:33 | disposition home or self-care (01) ==
LOC: ER 15:50
PROVIDERS: Emergency Medicine
DX: G45.9 Transient cerebral ischemic attack, unspecified (principal); L03.113 Cellulitis of right upper limb; E86.0 Dehydration; E11.9 Type 2 diabetes mellitus without complications; I10 Essential (primary) hypertension; E78.00 Pure hypercholesterolemia, unspecified; Z87.891 Personal history of nicotine dependence; Z79.84 Long term (current) use of oral hypoglycemic drugs; Z79.82 Long term (current) use of aspirin; Z79.899 Other long term (current) drug therapy; Z88.2 Allergy status to sulfonamides; Z88.1 Allergy status to other antibiotic agents; Z91.040 Latex allergy status; Z88.8 Allergy status to other drugs, medicaments and biological substances
CPT/HCPCS: 70450; 80053; 85025; 93005; 93010; 99285-25; A9270; J7030

== ENCOUNTER 2024-07-02 22:51 | Emergency (ER) | payer MEDICARE ==
[~2024-07-02] VITALS: Ht 160 cm; Wt 59.0 kg
[~2024-07-02 22:51] MED LIST changes: +CLIN150 PO
[2024-07-02 23:27] VITALS: BP 109/56
[2024-07-03] MEDS ORDERED: Ampicillin Sod 2,000 MG in NS 100 ML IV ONE (00:20)
== END 2024-07-03 01:28 | disposition home or self-care (01) ==
LOC: ER 22:51
DX: T82.524A Displacement of infusion catheter, initial encounter (principal); Z88.2 Allergy status to sulfonamides; Z88.8 Allergy status to other drugs, medicaments and biological substances; Z88.1 Allergy status to other antibiotic agents; Z91.048 Other nonmedicinal substance allergy status; Z91.040 Latex allergy status; Z79.899 Other long term (current) drug therapy; Z79.84 Long term (current) use of oral hypoglycemic drugs; Z79.82 Long term (current) use of aspirin; E11.9 Type 2 diabetes mellitus without complications; I10 Essential (primary) hypertension; E78.00 Pure hypercholesterolemia, unspecified; Z85.3 Personal history of malignant neoplasm of breast; I25.10 Atherosclerotic heart disease of native coronary artery without angina pectoris; Z87.891 Personal history of nicotine dependence
CPT/HCPCS: 96365; 99283; J0290

== ENCOUNTER 2024-07-07 11:34 | Emergency (ER) | payer MEDICARE ==
[~2024-07-07] VITALS: Ht 160 cm; Wt 59.0 kg
[2024-07-07] MEDS ORDERED: CefTRIAXone Sodium 1,000 MG in NS 50 ML IV ONE (13:20)
[2024-07-07] MEDS ORDERED: Ampicillin Sod 2,000 MG in NS 100 ML IV ONE (13:20)
[2024-07-07 13:53] VITALS: BP 125/67
== END 2024-07-07 15:49 ==
LOC: ER 11:34
DX: Z45.2 Encounter for adjustment and management of vascular access device (principal); I38 Endocarditis, valve unspecified; E11.9 Type 2 diabetes mellitus without complications; I10 Essential (primary) hypertension; E78.00 Pure hypercholesterolemia, unspecified; Z88.2 Allergy status to sulfonamides; Z88.1 Allergy status to other antibiotic agents; Z88.8 Allergy status to other drugs, medicaments and biological substances; Z91.040 Latex allergy status; Z91.048 Other nonmedicinal substance allergy status; Z79.84 Long term (current) use of oral hypoglycemic drugs; Z79.82 Long term (current) use of aspirin; Z79.899 Other long term (current) drug therapy
CPT/HCPCS: 36569; 96365; 96367; 99284-25; C1751; J0290; J0696

== ENCOUNTER → 2024-07-15 | Outpatient (CLI) | payer MEDICARE ==
[2024-07-15 14:15] LABS: BASOPHILS ABSOLUTE AUTO 0.05 K/mm3 (0.00-0.23); BASOPHILS PERCENT AUTO 1 % (0-2); EOSINOPHILS ABSOLUTE AUTO 0.98 K/mm3 (0.00-0.68); EOSINOPHILS PERCENT AUTO 13 % (0-6); Hematocrit 33.6 % (33.0-51.0); Hemoglobin 10.5 g/dL (11.5-16.0); IMMATURE GRAN ABSOLUTE AUTO 0.04 K/mm3 (0.00-0.10); IMMATURE GRAN PERCENT AUTO 1 % (0-1); LYMPHOCYTES ABSOLUTE AUTO 0.78 K/mm3 (0.84-5.20); LYMPHOCYTES PERCENT AUTO 10 % (21-46); MONOCYTES ABSOLUTE AUTO 0.77 K/mm3 (0.16-1.47); MONOCYTES PERCENT AUTO 10 % (4-13); Mean Corpuscular HGB 31.3 pg (26.0-34.0); Mean Corpuscular HGB Conc 31.3 g/dL (31.5-36.5); Mean Corpuscular Volume 100 fL (80-100); NEUTROPHILS ABSOLUTE AUTO 5.19 K/mm3 (1.96-9.15); NEUTROPHILS PERCENT AUTO 67 % (41-73); Platelet Count 321 K/mm3 (150-400); RDW Coefficient Variation 17.2 % (11.7-14.2); RDW Standard Deviation 63.9 fL (35.1-46.3); Red Blood Cell Count 3.36 M/mm3 (3.80-5.20); White Blood Cell Count 7.81 K/mm3 (4.00-11.30)
[2024-07-15 14:37] LABS: Albumin, Blood 1.7 g/dL (3.4-5.0); Albumin/Globulin Ratio 0.4 (0.8-1.8); Bilirubin, Total 0.1 mg/dL (0.1-1.0); Bun/Creatinine Ratio 14.4 (12.0-20.0); C-REACTIVE PROTEIN, EXT RANGE 12.2 mg/dL (0.000-0.300); Calcium, Blood 8.5 mg/dL (8.5-10.1); Creatinine, Blood 0.76 mg/dL (0.40-1.00); Total Protein, Blood 5.7 g/dL (6.4-8.2)
== END ==
LOC: LAB QU 14:05
DX: I33.0 Acute and subacute infective endocarditis (principal); I82.622 Acute embolism and thrombosis of deep veins of left upper extremity
CPT/HCPCS: 80053; 85025; 85651; 86140

== ENCOUNTER 2024-09-02 05:14 | Inpatient (IN) | payer MEDICARE ==
[~2024-09-02] VITALS: Ht 160 cm; Wt 49.3 kg
[2024-09-02] MEDS ORDERED: ATOR40TA PO (05:28)
[2024-09-02] MEDS ORDERED: FentaNYL Citrate 50 MCG/ML 2 ML Injection IV ONE ×2 (06:35→10:30)
[2024-09-02] MEDS ORDERED: Ondansetron HCl 2 MG / ML 2ML Vial IV ONE (06:35)
[2024-09-02 07:02] LABS: BASOPHILS ABSOLUTE AUTO 0.04 K/mm3 (0.00-0.23); BASOPHILS PERCENT AUTO 0 % (0-2); EOSINOPHILS ABSOLUTE AUTO 0.49 K/mm3 (0.00-0.68); EOSINOPHILS PERCENT AUTO 5 % (0-6); Hematocrit 31.1 % (33.0-51.0); IMMATURE GRAN ABSOLUTE AUTO 0.04 K/mm3 (0.00-0.10); IMMATURE GRAN PERCENT AUTO 0 % (0-1); LYMPHOCYTES ABSOLUTE AUTO 0.71 K/mm3 (0.84-5.20); LYMPHOCYTES PERCENT AUTO 7 % (21-46); MONOCYTES ABSOLUTE AUTO 0.99 K/mm3 (0.16-1.47); MONOCYTES PERCENT AUTO 9 % (4-13); Mean Corpuscular HGB 32.3 pg (26.0-34.0); Mean Corpuscular HGB Conc 32.2 g/dL (31.5-36.5); Mean Corpuscular Volume 100 fL (80-100); Mean Platelet Volume 11.2 fL (9.1-12.4); NEUTROPHILS ABSOLUTE AUTO 8.34 K/mm3 (1.96-9.15); NEUTROPHILS PERCENT AUTO 79 % (41-73); Platelet Count 189 K/mm3 (150-400); RDW Coefficient Variation 15.9 % (11.7-14.2); RDW Standard Deviation 58.9 fL (35.1-46.3); White Blood Cell Count 10.61 K/mm3 (4.00-11.30)
[2024-09-02 07:24] LABS: Albumin, Blood 2.4 g/dL (3.4-5.0); Albumin/Globulin Ratio 0.5 (0.8-1.8); Bilirubin, Total 0.2 mg/dL (0.1-1.0); Bun/Creatinine Ratio 20.4 (12.0-20.0); Calcium, Blood 9.2 mg/dL (8.5-10.1); Creatinine, Blood 1.13 mg/dL (0.40-1.00); Globulin, Blood 4.6 g/dL (2.2-4.0); Potassium, Blood 4.4 mmol/L (3.5-5.5)
[2024-09-02] MEDS ORDERED: Magnesium Hydroxide Conc 10 ML UDC PO PRN (11:00)
[2024-09-02] MEDS ORDERED: FLU VACC TS2024-25(6MOS UP)/PF 45 MCG/0.5 ML SYRINGE IM SCH (11:05)
[2024-09-02] MEDS ORDERED: Acetaminophen 325 MG TABLET PO PRN (13:40)
[2024-09-02] MEDS ORDERED: Loperamide HCl 2 MG Cap PO PRN (13:45)
[2024-09-02] MEDS ORDERED: Bisacodyl 10 MG Supp PR PRN (13:45)
[2024-09-02] MEDS ORDERED: TraMADol HCl 50 MG Tab PO PRN (13:45)
[2024-09-02 14:06] VITALS: BP 154/76
[2024-09-02] MEDS ORDERED: NS 250 ML IV ONE ×2 (14:12→14:28)
[2024-09-02] MEDS ORDERED: Midazolam HCl 1MG / ML 2ML Vial ONE (14:31)
[2024-09-02] MEDS ORDERED: FentaNYL Citrate 50 MCG/ML 2 ML Injection ONE (14:32)
[2024-09-02] MEDS ORDERED: CeFAZolin Sodium 2,000 MG VIAL ONE (14:34)
[2024-09-02] MEDS ORDERED: NS 100 ML IV ONE (14:35)
--- NOTE | 2024-09-02 14:50 | NUR ---
PATIENT TAKEN TO CHEMISTRY ASSOCIATE VIA PATIENT BED TO REPLACE NEPHROSTOMY TUBE.
[2024-09-02 15:10] VITALS: BP 123/81
--- NOTE | 2024-09-02 15:11 | NUR ---
BEDSIDE REPORT GIVEN TO RN. L NEPH TUBE IN PLACE WITH SUTURES AND STAY FIX DRAINING CLEAR PINKISH FLUID. PATIENT CONVERSING APPROPRIATELY
[2024-09-02] MEDS ORDERED: Atorvastatin 40 MG Tab PO SCH (21:00)
[2024-09-02] MEDS ORDERED: Dronabinol 2.5 MG Cap PO SCH (21:00)
[2024-09-02] MEDS ORDERED: Metoprolol Tartrate 25 MG Tab PO SCH (21:00)
[2024-09-02] MEDS ORDERED: Docusate Sodium 100 MG Cap PO SCH (21:00)
[2024-09-02] MEDS ORDERED: Primidone 50 MG Tab PO SCH (21:00)
[2024-09-03] MEDS ORDERED: [UNRECOGNIZED DRUG - OTHER] PO SCH (09:00)
[2024-09-03] MEDS ORDERED: DULoxetine HCL 20 MG Cap DR PO SCH (09:00)
[2024-09-03] MEDS ORDERED: Furosemide 40 MG Tab PO SCH (09:00)
[2024-09-03] MEDS ORDERED: Primidone 50 MG Tab PO SCH (09:00)
[2024-09-03] MEDS ORDERED: Glucosamine Sulfate 500 MG Cap PO SCH (09:00)
== END 2024-09-02 16:50 | disposition home or self-care (01) | DRG 699 ==
LOC: ER 05:14 → MEDS 10:59
PROVIDERS: Emergency Medicine; ADMIT Family Medicine
PROC: 0T9430Z Drainage of Left Kidney Pelvis with Drainage Device, Percutaneous Approach (ICD-10-PCS; principal; 2024-09-02)
DX: T83.022A Displacement of nephrostomy catheter, initial encounter (principal); C79.89 Secondary malignant neoplasm of other specified sites; N13.30 Unspecified hydronephrosis; M19.90 Unspecified osteoarthritis, unspecified site; I10 Essential (primary) hypertension; Z66 Do not resuscitate; I25.10 Atherosclerotic heart disease of native coronary artery without angina pectoris; G89.29 Other chronic pain; D64.9 Anemia, unspecified; E11.42 Type 2 diabetes mellitus with diabetic polyneuropathy; E78.2 Mixed hyperlipidemia; K21.9 Gastro-esophageal reflux disease without esophagitis; E55.9 Vitamin D deficiency, unspecified; F32.A Depression, unspecified; C50.919 Malignant neoplasm of unspecified site of unspecified female breast; Z96.651 Presence of right artificial knee joint; Z90.89 Acquired absence of other organs; Z88.2 Allergy status to sulfonamides; Z88.1 Allergy status to other antibiotic agents; Z91.040 Latex allergy status; Z91.048 Other nonmedicinal substance allergy status; Z88.8 Allergy status to other drugs, medicaments and biological substances; Z79.84 Long term (current) use of oral hypoglycemic drugs; Z79.899 Other long term (current) drug therapy; Z79.891 Long term (current) use of opiate analgesic; Z79.82 Long term (current) use of aspirin; Z79.01 Long term (current) use of anticoagulants; Z90.49 Acquired absence of other specified parts of digestive tract; Z95.1 Presence of aortocoronary bypass graft; Z90.710 Acquired absence of both cervix and uterus; Z95.4 Presence of other heart-valve replacement; Z98.890 Other specified postprocedural states; Z87.891 Personal history of nicotine dependence; Z98.42 Cataract extraction status, left eye; Z98.41 Cataract extraction status, right eye
CPT/HCPCS: 74177; 80053; 85025; 96374-59; 96375; 96376; 99152; 99285-25; C1729; C1769; C1887; C1894; J0690; J2250; J2405; J3010; J7050; Q9967

== ENCOUNTER 2024-09-09 18:55 | Emergency (ER) | payer MEDICARE ==
[~2024-09-09] VITALS: Ht 160 cm; Wt 48.5 kg
[2024-09-09 19:01] VITALS: BP 111/70
== END 2024-09-09 21:55 | disposition home or self-care (01) ==
LOC: ER 18:55
DX: N99.522 Malfunction of incontinent external stoma of urinary tract (principal); I10 Essential (primary) hypertension; E11.9 Type 2 diabetes mellitus without complications; E78.00 Pure hypercholesterolemia, unspecified; Z79.84 Long term (current) use of oral hypoglycemic drugs; Z79.82 Long term (current) use of aspirin; Z79.899 Other long term (current) drug therapy; Z88.2 Allergy status to sulfonamides; Z88.1 Allergy status to other antibiotic agents; Z91.040 Latex allergy status; Z91.048 Other nonmedicinal substance allergy status; Z88.8 Allergy status to other drugs, medicaments and biological substances
CPT/HCPCS: 76705; 99283-25

== ENCOUNTER 2024-10-08 13:06 | Emergency (ER) | payer MEDICARE ==
[~2024-10-08] VITALS: Ht 160 cm; Wt 49.4 kg
[2024-10-08 13:21] VITALS: BP 92/52
== END 2024-10-08 16:02 | disposition home or self-care (01) ==
LOC: ER 13:06
DX: T83.032A Leakage of nephrostomy catheter, initial encounter (principal); E11.9 Type 2 diabetes mellitus without complications; I10 Essential (primary) hypertension; E78.5 Hyperlipidemia, unspecified; Z87.891 Personal history of nicotine dependence; Z79.82 Long term (current) use of aspirin; Z79.899 Other long term (current) drug therapy; Z79.84 Long term (current) use of oral hypoglycemic drugs; Z88.2 Allergy status to sulfonamides; Z88.1 Allergy status to other antibiotic agents; Z91.048 Other nonmedicinal substance allergy status; Z91.040 Latex allergy status; Z88.8 Allergy status to other drugs, medicaments and biological substances
CPT/HCPCS: 74150; 99283-25

== ENCOUNTER 2024-11-04 08:30 | Inpatient (IN) | payer MEDICARE ==
[~2024-11-04] VITALS: Ht 160 cm; Wt 49.7 kg
[2024-11-04 10:07] LABS: BASOPHILS ABSOLUTE AUTO 0.05 K/mm3 (0.00-0.23); BASOPHILS PERCENT AUTO 0 % (0-2); EOSINOPHILS ABSOLUTE AUTO 0.06 K/mm3 (0.00-0.68); EOSINOPHILS PERCENT AUTO 0 % (0-6); Hematocrit 32.9 % (33.0-51.0); Hemoglobin 10.9 g/dL (11.5-16.0); IMMATURE GRAN ABSOLUTE AUTO 0.08 K/mm3 (0.00-0.10); IMMATURE GRAN PERCENT AUTO 1 % (0-1); LYMPHOCYTES ABSOLUTE AUTO 1.05 K/mm3 (0.84-5.20); LYMPHOCYTES PERCENT AUTO 7 % (21-46); MONOCYTES ABSOLUTE AUTO 1.52 K/mm3 (0.16-1.47); MONOCYTES PERCENT AUTO 10 % (4-13); Mean Corpuscular HGB 32.6 pg (26.0-34.0); Mean Corpuscular HGB Conc 33.1 g/dL (31.5-36.5); Mean Corpuscular Volume 99 fL (80-100); Mean Platelet Volume 11.4 fL (9.1-12.4); NEUTROPHILS ABSOLUTE AUTO 11.85 K/mm3 (1.96-9.15); NEUTROPHILS PERCENT AUTO 81 % (41-73); Platelet Count 179 K/mm3 (150-400); RDW Coefficient Variation 13.1 % (11.7-14.2); RDW Standard Deviation 46.6 fL (35.1-46.3); Red Blood Cell Count 3.34 M/mm3 (3.80-5.20); White Blood Cell Count 14.61 K/mm3 (4.00-11.30)
[2024-11-04 10:28] LABS: Bun/Creatinine Ratio 22.9 (12.0-20.0); Calcium, Blood 9.2 mg/dL (8.5-10.1); Creatinine, Blood 1.18 mg/dL (0.40-1.00); Potassium, Blood 4.1 mmol/L (3.5-5.5)
[2024-11-04] MEDS ORDERED: FLU VACC TS2024-25(6MOS UP)/PF 45 MCG/0.5 ML SYRINGE IM SCH (12:00)
[2024-11-04] MEDS ORDERED: MIRTAZAPINE7.5 M1 PO (13:54)
[2024-11-04] MEDS ORDERED: Primidone50 MG PO (13:55)
[2024-11-04] MEDS ORDERED: BUPROPION HCL75 MG PO (13:56)
[2024-11-04] MEDS ORDERED: FentaNYL Citrate 50 MCG/ML 2 ML Injection ONE (15:20)
[2024-11-04] MEDS ORDERED: Midazolam HCl 1MG / ML 2ML Vial ONE (15:20)
[2024-11-04] MEDS ORDERED: NS 250 ML IV ONE (15:21)
[2024-11-04] MEDS ORDERED: NS 1,000 ML IV ONE (15:24)
[2024-11-04 16:49] VITALS: BP 148/83
--- NOTE | 2024-11-04 19:30 | NUR ---
PT ARRIVED TO ROOM AOX4 AND COOPERATIVE OF CARE. PT'S NEW NEPHROSTOMY TUBE LOOKS CLEAN NO SIGNS OF BLEEDING. PT SETTLED INTO THE ROOM AND CALL LIGHT IS WITHIN REACH WILL CONTINUE TO MONITORING.
[2024-11-04 20:55] VITALS: BP 161/89
[2024-11-04] MEDS ORDERED: Insulin Human Lispro 100 Units/ML 3ML Syringe SC SCH (21:00)
[2024-11-04] MEDS ORDERED: Mirtazapine 15 MG Tab PO SCH (21:00)
[2024-11-04] MEDS ORDERED: Metoprolol Tartrate 25 MG Tab PO SCH (21:00)
[2024-11-04] MEDS ORDERED: Acetaminophen 325 MG TABLET PO PRN (22:15)
[2024-11-05 05:09] VITALS: BP 173/90
[2024-11-05 05:48] LABS: Bun/Creatinine Ratio 25.2 (12.0-20.0); Calcium, Blood 9.5 mg/dL (8.5-10.1); Creatinine, Blood 1.11 mg/dL (0.40-1.00)
--- NOTE | 2024-11-05 06:32 | NUR ---
SHIFT SUMMARY PATIENT HAS BEEN SLEEPING INTERMITTANTLY BETWEEN NURSING CARE. LT NEPHROSTOMY TUBE WAS CLAMPED AT 2100 ORDERED BY MD. PATIENT HAD A SHORT EPISODE OF NAUSEA BUT THEN WENT TO SLEEP. SHE HAS NOT HAD ANY FLANK PAIN OR SIGNS OF INFECTION. BLADDER SCAN SHOWED 338 ML OF URINE IN HER BLADDER. SAFETY PRECAUTIONS ARE BEING MAINTAINED.
[2024-11-05 07:29] VITALS: BP 166/99
[2024-11-05] MEDS ORDERED: Atorvastatin 40 MG Tab PO SCH (09:00)
[2024-11-05] MEDS ORDERED: buPROPion HCL 150 MG TAB.SR.12H PO SCH (09:00)
[2024-11-05] MEDS ORDERED: DULoxetine HCL 20 MG Cap DR PO SCH (09:00)
--- NOTE | 2024-11-05 11:05 | NUR ---
PATIENT STATED THAT SHE VOIDED, YET SHE HAS A PUREWICK ON. BRIEF BARELY WET. DID BLADDERSCAN, 400 SCANNED. NURSE DRAINED INTO NEPHROSTOMY PER DR'S INSTRUCTION.
--- NOTE | 2024-11-05 12:10 | NUR ---
PATIENT WITH SOME DISCOMFORT IN BLADDER THIS AM. SHE HAS BEEN VOIDING SCANT AMOUNTS FROM URETHRA. GREATER THAN 400 ML IN BLADDER ON BLADDER SCAN. DR KAMARA NOTIFIED, ORDER RECIEVED TO OPEN BACK UP THE NEPHROSTOMY BAG WHICH HAS BEEN CLOSED PER ORDERS FROM 2100 LAST NIGHT. PATIENT REPORTS DISCOMFORT SUBSIDING AFTER DRAINAGE OF NEPH BAG, 600ML OUTPUT.
[2024-11-05 16:43] VITALS: BP 115/59
--- NOTE | 2024-11-05 17:50 | NUR ---
SHIFT SUMMARY PATIENT WITH LEFT FLANK AND BACK PAIN MORE THAN HER NORMAL. BLADDER SCAN SHOWED 400ML THIS AM. DR KAMARA NOTIFIED. ORDER TO OPEN NEPHROSTOMOY TUBING TO BAG. DR RIOS NOTIFIED, ORDERS RECIEVED TO STRAIGHT CATH IF OVER 400ML IN BLADDER. CLARIFICATION CALL TO DR RIOS AFTER HIS VISIT REGARDING THE FLANK PAIN PATIENT HAD PREVIOUSLY CALLED BACK PAIN BUT STATES IT IS MORE THAN HER NORMAL AND MAY BE MIXED WITH FLANK PAIN. PER DR RIOS, PATIENT FAILED NEPHROURETERAOSTOMY AND TO GO BACK TO SURGERY TOMORROW AND NPO AT MIDNIGHT. BED IN LOW POSITION, CALL LIGHT IN REACH. PATIENT ABLE TO MAKE NEEDS KNOWN.
[2024-11-05 20:30] VITALS: BP 137/66
[2024-11-05] MEDS ORDERED: Heparin Sodium,Porcine 5,000 UNIT/0.5 ML SDV SC SCH (21:00)
[2024-11-05] MEDS ORDERED: Heparin Sodium 5000 Units/ML 1ML MDV SC SCH (21:30)
[2024-11-06 04:30] VITALS: BP 124/67
[2024-11-06 05:59] LABS: BASOPHILS ABSOLUTE AUTO 0.05 K/mm3 (0.00-0.23); BASOPHILS PERCENT AUTO 0 % (0-2); EOSINOPHILS ABSOLUTE AUTO 0.02 K/mm3 (0.00-0.68); EOSINOPHILS PERCENT AUTO 0 % (0-6); Hematocrit 31.9 % (33.0-51.0); Hemoglobin 10.6 g/dL (11.5-16.0); IMMATURE GRAN ABSOLUTE AUTO 0.11 K/mm3 (0.00-0.10); IMMATURE GRAN PERCENT AUTO 1 % (0-1); LYMPHOCYTES ABSOLUTE AUTO 0.71 K/mm3 (0.84-5.20); LYMPHOCYTES PERCENT AUTO 4 % (21-46); MONOCYTES PERCENT AUTO 10 % (4-13); Mean Corpuscular HGB 31.9 pg (26.0-34.0); Mean Corpuscular HGB Conc 33.2 g/dL (31.5-36.5); Mean Corpuscular Volume 96 fL (80-100); Mean Platelet Volume 11.5 fL (9.1-12.4); NEUTROPHILS ABSOLUTE AUTO 14.36 K/mm3 (1.96-9.15); NEUTROPHILS PERCENT AUTO 85 % (41-73); Platelet Count 202 K/mm3 (150-400); RDW Coefficient Variation 12.9 % (11.7-14.2); RDW Standard Deviation 45.6 fL (35.1-46.3); Red Blood Cell Count 3.32 M/mm3 (3.80-5.20); White Blood Cell Count 16.85 K/mm3 (4.00-11.30)
[2024-11-06 06:13] LABS: Bun/Creatinine Ratio 30.5 (12.0-20.0); Calcium, Blood 9.2 mg/dL (8.5-10.1); Creatinine, Blood 1.28 mg/dL (0.40-1.00); Potassium, Blood 3.5 mmol/L (3.5-5.5)
[2024-11-06 07:23] VITALS: BP 139/70
[2024-11-06 09:42] LABS: Source, Urine Nephrostomy
[2024-11-06 10:13] LABS: Appearance, Urine Hazy (Clear); Bilirubin, Urine Neg (Neg); Blood, Urine 5+ (Neg); Color, Urine Yellow (P-Yellow); Glucose Qualitative, Urine Neg (Neg); Ketones, Urine 1+ (Neg); Leukocyte Esterase, Urine 3+ (Neg); Nitrite, Urine Neg (Neg); Protein, Urine 3+ (Neg); Specific Gravity, Urine 1.015 (1.003-1.022); Urobilinogen, Urine NORM (Normal)
[2024-11-06] MEDS ORDERED: CefTRIAXone Sodium 1,000 MG in NS 100 ML IV SCH (12:00)
[2024-11-06 13:28] LABS: White Blood Cells, Urine 25-50 /hpf (0-5)
[2024-11-06 13:29] LABS: Bacteria Many /hpf; Squamous Epithelial Cells Rare /hpf (Few)
[2024-11-06] MEDS ORDERED: Meropenem 1,000 MG in NS 100 ML IV SCH (14:31)
[2024-11-06] MEDS ORDERED: BUPROPION XL150 M1 PO (17:32)
[2024-11-06] MEDS ORDERED: Primidone50 MG PO (17:34)
--- NOTE | 2024-11-06 17:38 | NUR ---
SHIFT SUMMARY PT AOX3, MENTATION IMPROVING AT THE SHIFT PROGRESSES. SOMEWHAT CONFUSED THIS AM BUT ABLE TO REORIENT. AT THE BS. INITIAL PLAN FOR PROCEDURE TO NEPHROSTOMY CANCELLED DUE TO THE PT WANTING A DIFFERENT SOLUTION. PT AND AGREED, ALL PROVIDERS AWARE. CALLS AND MAKES HIS NEEDS KNOWN. L NEPHROSTOMY PATENT AND DRAINING SMALL AMOUNTS OF URINE. CALL LIGHT WITHIN REACH, BED LOCKED AND IN THE LOWEST POSITION. WILL REPORT TO ONCOMING NURSE.
[2024-11-06 17:45] VITALS: BP 144/64
[2024-11-06 19:55] VITALS: BP 118/57
[2024-11-07 02:44] VITALS: BP 132/67
--- NOTE | 2024-11-07 04:05 | NUR ---
SHIFT SUMMARY PATIENT HAD NO ACUTE CHANGES. ALERT ORIENTED AND BEDREST. PIV INTACT. IV ABX INFUSED. DENIES CHEST PAIN, SOB, AND N/V. VSS/AFEBRILE. CBG 257. LEFT NEPHROSTOMY TUBE PATENT AND DRAINED 300 mL. SLEPT MOST OF THE SHIFT. CALL LIGHT IN REACH. BED IN LOWEST POSITION. WILL CONTINUE TO MONITOR UNTIL DAY SHIFT NURSE ASSUMES CARE.
[2024-11-07 06:18] LABS: BASOPHILS ABSOLUTE AUTO 0.04 K/mm3 (0.00-0.23); BASOPHILS PERCENT AUTO 0 % (0-2); EOSINOPHILS ABSOLUTE AUTO 0.01 K/mm3 (0.00-0.68); EOSINOPHILS PERCENT AUTO 0 % (0-6); IMMATURE GRAN ABSOLUTE AUTO 0.08 K/mm3 (0.00-0.10); IMMATURE GRAN PERCENT AUTO 1 % (0-1); LYMPHOCYTES ABSOLUTE AUTO 0.87 K/mm3 (0.84-5.20); LYMPHOCYTES PERCENT AUTO 6 % (21-46); MONOCYTES ABSOLUTE AUTO 1.33 K/mm3 (0.16-1.47); MONOCYTES PERCENT AUTO 9 % (4-13); Mean Corpuscular HGB 32.4 pg (26.0-34.0); Mean Corpuscular HGB Conc 33.3 g/dL (31.5-36.5); Mean Corpuscular Volume 97 fL (80-100); Mean Platelet Volume 11.6 fL (9.1-12.4); NEUTROPHILS ABSOLUTE AUTO 12.49 K/mm3 (1.96-9.15); NEUTROPHILS PERCENT AUTO 84 % (41-73); Platelet Count 176 K/mm3 (150-400); RDW Standard Deviation 45.8 fL (35.1-46.3); Red Blood Cell Count 3.09 M/mm3 (3.80-5.20); White Blood Cell Count 14.82 K/mm3 (4.00-11.30)
[2024-11-07 06:39] LABS: Bun/Creatinine Ratio 24.6 (12.0-20.0); Calcium, Blood 9.1 mg/dL (8.5-10.1); Creatinine, Blood 1.18 mg/dL (0.40-1.00); Potassium, Blood 3.6 mmol/L (3.5-5.5)
[2024-11-07 08:14] VITALS: BP 148/74
[2024-11-07 15:11] VITALS: BP 123/63
--- NOTE | 2024-11-07 17:39 | NUR ---
SHIFT SUMMARY PT AOX3-4, CONFUSION IN THE AM. L NEPHROSTOMY PATENT AND DRAINING. MEDICATED FOR PAIN PER THE EMAR. AT THE BS TODAY, PT HAS HAD NO OTHER COMPLAINTS. REPOSITIONED THROUGHOUT THE SHIFT. BED BATH DONE. CALLS AND MAKES HER NEEDS KNOWN. CALL LIGHT WITHIN REACH, BED LOCKED AND IN THE LOWEST POSITION. WILL REPORT TO ONCOMING NURSE.
[2024-11-07 20:10] VITALS: BP 114/58
[2024-11-07] MEDS ORDERED: NS 250 ML IV PRN (20:50)
[2024-11-07] MEDS ORDERED: Lactobacil 2-S.Thermo-Bifido 1 1 Cap PO SCH (21:00)
[2024-11-08 02:36] VITALS: BP 153/80
--- NOTE | 2024-11-08 05:39 | NUR ---
SHIFT SUMMARY PT ALERT ORIENTED WITH INTERMITTENT CONFUSION. REMAINS WITH A LT SIDED NEPHRO URETEROSTOMY DRAIN DRAINING YELLOW URINE. NO C/O PAIN THIS SHIFT. VSS ON RA SATTING AT 97%. SHE WEARS A PUREWICK ALSO. REMAINS ON MEROPENEM ORDERED FOR UTI. SHE WEARS BRIEFS AND IS KEPT REPOSITIONED. FS DONE AC AND HS WAS 191. RESTING IN BED AT THIS TIME WITH CALL LIGHT IN REACH
[2024-11-08 05:49] LABS: BASOPHILS ABSOLUTE AUTO 0.04 K/mm3 (0.00-0.23); BASOPHILS PERCENT AUTO 0 % (0-2); EOSINOPHILS ABSOLUTE AUTO 0.02 K/mm3 (0.00-0.68); EOSINOPHILS PERCENT AUTO 0 % (0-6); Hematocrit 32.1 % (33.0-51.0); Hemoglobin 10.5 g/dL (11.5-16.0); IMMATURE GRAN ABSOLUTE AUTO 0.08 K/mm3 (0.00-0.10); IMMATURE GRAN PERCENT AUTO 1 % (0-1); LYMPHOCYTES ABSOLUTE AUTO 0.49 K/mm3 (0.84-5.20); LYMPHOCYTES PERCENT AUTO 4 % (21-46); MONOCYTES ABSOLUTE AUTO 0.81 K/mm3 (0.16-1.47); MONOCYTES PERCENT AUTO 7 % (4-13); Mean Corpuscular HGB 31.6 pg (26.0-34.0); Mean Corpuscular HGB Conc 32.7 g/dL (31.5-36.5); Mean Corpuscular Volume 97 fL (80-100); Mean Platelet Volume 11.3 fL (9.1-12.4); NEUTROPHILS ABSOLUTE AUTO 10.18 K/mm3 (1.96-9.15); NEUTROPHILS PERCENT AUTO 88 % (41-73); Platelet Count 191 K/mm3 (150-400); RDW Coefficient Variation 12.7 % (11.7-14.2); RDW Standard Deviation 44.9 fL (35.1-46.3); Red Blood Cell Count 3.32 M/mm3 (3.80-5.20); White Blood Cell Count 11.62 K/mm3 (4.00-11.30)
[2024-11-08 06:13] LABS: Bun/Creatinine Ratio 26.9 (12.0-20.0); Creatinine, Blood 1.08 mg/dL (0.40-1.00); Potassium, Blood 3.4 mmol/L (3.5-5.5)
[2024-11-08] MEDS ORDERED: Polyethylene Glycol 3350 17 gm PO PRN (10:00)
[2024-11-08 16:42] VITALS: BP 135/73
--- NOTE | 2024-11-08 16:47 | NUR ---
SHIFT SUMMARY: PATIENT A/OX3, SOME CONFUSION T/O SHIFT, BUT EASILY REORIENTATED AND ABLE TO FOLLOW DIRECTION. PATIENT HAS L NEPH TUBE CONNECTED TO BAG, PATENT DRAINING CLEAR YELLOW URINE TO GRAVITY c MOD OUTPUT. PATIENT HAS PUREWICK FOR INCON VOID, CONNECTED TO SUCTIONED, TOLERATING WELL. PATIENT 2 MAX ASSIST TO USES BSC AND HAD LARGE BM THIS SHIFT. PATIENT WORKED c PT TODAY FOR EVAL, RECOMMENDING SNF. PATIENT GOT ACCEPTED TO [facility] AND INSURANCE AUTH APPROVED EFFECTIVE 11/09/24. PATIENT DENIES GENERALIZED PAIN. VITAL SIGNS REVIEWED. BED ALARM ON FOR SAFETY. CALL LIGHT IN REACH.
[2024-11-08 20:18] VITALS: BP 143/82
[2024-11-09 02:37] VITALS: BP 129/67
--- NOTE | 2024-11-09 05:01 | NUR ---
SHIFT SUMM: PT IS A 79 YO DNR WHO WAS ADMITTED FOR OBSTRUCTIVE UROPATHY AND IS IN CONTACT ISO FOR ESBL IN THE URINE. PT HAS A NEPHROSTOMY DRAIN BAG ON HER L SIDE. PT WILL BE GOING TO [facility] UPON D/C. PT IS A 1-2 ASSIST TO THE COMMODE. PT HAS BEEN RELAXING MOST OF THE SHIFT AND CALLS TO MAKE NEEDS KNOWN. PT IS AN A[facility]S BS CHECK AND DID NOT NEED INSULIN THIS EVENING.
[2024-11-09 06:13] LABS: BASOPHILS ABSOLUTE AUTO 0.04 K/mm3 (0.00-0.23); BASOPHILS PERCENT AUTO 0 % (0-2); EOSINOPHILS ABSOLUTE AUTO 0.26 K/mm3 (0.00-0.68); EOSINOPHILS PERCENT AUTO 3 % (0-6); Hematocrit 30.2 % (33.0-51.0); Hemoglobin 9.9 g/dL (11.5-16.0); IMMATURE GRAN ABSOLUTE AUTO 0.06 K/mm3 (0.00-0.10); IMMATURE GRAN PERCENT AUTO 1 % (0-1); LYMPHOCYTES ABSOLUTE AUTO 0.52 K/mm3 (0.84-5.20); LYMPHOCYTES PERCENT AUTO 6 % (21-46); MONOCYTES ABSOLUTE AUTO 1.01 K/mm3 (0.16-1.47); MONOCYTES PERCENT AUTO 11 % (4-13); Mean Corpuscular HGB 31.9 pg (26.0-34.0); Mean Corpuscular HGB Conc 32.8 g/dL (31.5-36.5); Mean Corpuscular Volume 97 fL (80-100); Mean Platelet Volume 10.7 fL (9.1-12.4); NEUTROPHILS ABSOLUTE AUTO 7.03 K/mm3 (1.96-9.15); NEUTROPHILS PERCENT AUTO 79 % (41-73); Platelet Count 194 K/mm3 (150-400); RDW Coefficient Variation 12.7 % (11.7-14.2); RDW Standard Deviation 45.8 fL (35.1-46.3); White Blood Cell Count 8.92 K/mm3 (4.00-11.30)
[2024-11-09 06:53] LABS: Bun/Creatinine Ratio 23.5 (12.0-20.0); Calcium, Blood 9.1 mg/dL (8.5-10.1); Creatinine, Blood 1.02 mg/dL (0.40-1.00); Potassium, Blood 3.7 mmol/L (3.5-5.5)
[2024-11-09 07:36] VITALS: BP 132/74
--- NOTE | 2024-11-09 08:05 | NUR ---
ASSUMED CARE OF PATIENT. SLEEPING DURING SHIFT-CHANGE REPORT.
[2024-11-09] MEDS ORDERED: CefTRIAXone Sodium 1,000 MG in NS 100 ML IV SCH (10:00)
[2024-11-09] MEDS ORDERED: CEFTRIAXON1 GM/50 M2 IV (12:32)
[2024-11-09] MEDS ORDERED: MIRALAX17 GM PO (12:32)
[2024-11-09] MEDS ORDERED: VISBIOME 112.51 EACH PO (12:33)
--- NOTE | 2024-11-09 15:19 | NUR ---
DISCHARGE SUMMARY: A&Ox4. PLEASANT AND COOPERATIVE WITH CARE. CALLS APPROPRIATELY AND IS ABLE TO ADVOCATE NEEDS EFFECTIVELY. 2PA STAND-PIVOT TRANSFER. INCONTINENT; PUREWICK PATENT AND DRAINING TO SUCTION. MEDS WHOLE c FLUIDS. TELE NSR. ABx CHANGED TO ROCEPHIN. MED REC AND PACKET IN [place] AND SENT TO [facility] WITH PATIENT UPON DISCHARGE. FAMILY @ BEDSIDE MOST OF DAY. NEPHROSTOMY PATENT AND DRAINING YELLOW URINE TO GRAVITY.
[2024-11-19] MEDS ORDERED: ELIQUIS5 M3 PO (16:34)
[2024-11-19] MEDS ORDERED: METFORMIN HCL500 M2 PO (16:37)
[2024-11-19] MEDS ORDERED: TORS10 PO (16:46)
[2024-11-19] MEDS ORDERED: CEFU500T30 PO (16:51)
== END 2024-11-09 14:54 | DRG 660 ==
LOC: ER 08:30 → MEDS 08:31
PROVIDERS: Emergency Medicine; ADMIT Internal Medicine
PROC: 0T174ZB Bypass Left Ureter to Bladder, Percutaneous Endoscopic Approach (ICD-10-PCS; principal; 2024-11-04)
DX: T83.022A Displacement of nephrostomy catheter, initial encounter (principal); C77.5 Secondary and unspecified malignant neoplasm of intrapelvic lymph nodes; N13.6 Pyonephrosis; Y73.2 Prosthetic and other implants, materials and accessory gastroenterology and urology devices associated with adverse incidents; B96.20 Unspecified Escherichia coli [E. coli] as the cause of diseases classified elsewhere; F32.A Depression, unspecified; I25.10 Atherosclerotic heart disease of native coronary artery without angina pectoris; G89.29 Other chronic pain; M54.50 Low back pain, unspecified; M19.90 Unspecified osteoarthritis, unspecified site; E11.22 Type 2 diabetes mellitus with diabetic chronic kidney disease; E11.65 Type 2 diabetes mellitus with hyperglycemia; I12.9 Hypertensive chronic kidney disease with stage 1 through stage 4 chronic kidney disease, or unspecified chronic kidney disease; G25.2 Other specified forms of tremor; N18.9 Chronic kidney disease, unspecified; D63.1 Anemia in chronic kidney disease; Z96.0 Presence of urogenital implants; E78.2 Mixed hyperlipidemia; Z96.651 Presence of right artificial knee joint; Z79.84 Long term (current) use of oral hypoglycemic drugs; Z88.2 Allergy status to sulfonamides; Z88.1 Allergy status to other antibiotic agents; Z91.040 Latex allergy status; Z88.8 Allergy status to other drugs, medicaments and biological substances; Z79.01 Long term (current) use of anticoagulants; Z79.82 Long term (current) use of aspirin; Z95.1 Presence of aortocoronary bypass graft; Z95.2 Presence of prosthetic heart valve; Z87.891 Personal history of nicotine dependence; Z86.718 Personal history of other venous thrombosis and embolism; C50.919 Malignant neoplasm of unspecified site of unspecified female breast; Z17.0 Estrogen receptor positive status [ER+]
CPT/HCPCS: 36415; 50434; 74177; 80048; 81001; 82947; 85025; 87077; 87086; 87186; 97162; 97530; 99152; 99153; 99285-25; A9270; C1751; C1769; C1887; C2625; G0378; J0696; J1644; J2185; J2250; J3010; J7030; J7050; Q9967

== ENCOUNTER 2024-11-20 08:32 | Day surgery (SDC) | payer MEDICARE ==
[2024-11-20] VITALS (9 sets, daily range): BP systolic 98–126; BP diastolic 56–80
[~2024-11-20] VITALS: Ht 160 cm; Wt 46.7 kg
[~2024-11-20 08:32] MED LIST changes: +BUPROPION HCL75 MG PO; +BUPROPION XL150 M1 PO; +CEFTRIAXON1 GM/50 M2 IV; +CEFU500T30 PO; +ELIQUIS5 M3 PO; +METFORMIN HCL500 M2 PO; +MIRALAX17 GM PO; +MIRTAZAPINE7.5 M1 PO; +TORS10 PO; +VISBIOME 112.51 EACH PO
[2024-11-20] MEDS ORDERED: Midazolam HCl 1MG / ML 2ML Vial ONE (10:17)
[2024-11-20] MEDS ORDERED: FentaNYL Citrate 50 MCG/ML 2 ML Injection ONE (10:18)
[2024-11-20] MEDS ORDERED: NS 1,000 ML IV ONE (10:18)
[2024-11-20] MEDS ORDERED: NS 250 ML IV ONE (10:21)
[2024-11-20] MEDS ORDERED: Heparin Sodium 1000 Units/ML 10ML MDV ONE (10:21)
[2024-11-20] MEDS ORDERED: CeFAZolin Sodium 2,000 MG VIAL ONE (11:01)
[2024-11-20] MEDS ORDERED: NS 0 ML IV ONE (11:03)
[2024-11-20] MEDS ORDERED: NS 100 ML IV ONE (11:04)
--- NOTE | 2024-11-20 11:55 | NUR ---
CALLED [facility] AFTER CONFIRMING PLAN WITH PROVIDER AND PATIENT WILL D/C BACK TO [facility], TRANSPORT SET UP FOR 12:45, PENDING HOUR WAIT PER ORDER, SITE INSTRUCTIONS DISCUSSED ALONG WITH SITE NOTED INTACT, NO DRAINAGE OTHER THAN EXPECTED URINARY OUTPUT CLEAR, YELLOW. VSS, NO ACUTE CONCERNS OTHERWISE. DISCUSSED D/C INSTRUCTIONS, RESUME MEDICATIONS, FOLLOW-UP APPOINTMENTS AND SPECIFIC INSTRUCTIONS FOR [facility] WITH STOP-COCK TO PROMOTE PATIENT VOIDING ON HER OWN.
--- NOTE | 2024-11-20 12:46 | NUR ---
DISCUSSED DISCHARGE INSTRUCTIONS EARLIER AND STOPCOCK INSTRUCTIONS WITH , ALSO WRITTEN AND DISCUSSED NEPHROSTOMY TUBE INSTRUCTIONS WELL, MEDICATIONS ORDERED AND F/U APPT PUT ON D/C INSTRUCTIONS AFTER CALLING JARRED. NO QUESTIONS OR CONCERNS, SITE INTACT, DISCUSSED PLAN WITH AND CONTACTED [facility], ARRIVED AT 1235, LEFT EARLIER TO MEET PATIENT AT [facility]. PATIENT LEFT IN CARE OF [facility] AT 1240, NO CONCERNS AT TIME OF TRANSFER.
== END 2024-11-20 13:00 | disposition home or self-care (01) ==
LOC: MHTC 08:32
DX: Z43.6 Encounter for attention to other artificial openings of urinary tract (principal); N13.9 Obstructive and reflux uropathy, unspecified; I10 Essential (primary) hypertension; E11.9 Type 2 diabetes mellitus without complications; Z88.2 Allergy status to sulfonamides; Z88.8 Allergy status to other drugs, medicaments and biological substances; Z79.01 Long term (current) use of anticoagulants; Z79.84 Long term (current) use of oral hypoglycemic drugs; Z79.899 Other long term (current) drug therapy
CPT/HCPCS: 50387; 99152; C1769; C2625; J0690; J1644; J2250; J3010; J7030; J7050; Q9967